=== PATIENT | female | born 1995 | race Caucasian/White ===

== ENCOUNTER 2017-07-08 22:38 | Inpatient (IN) | payer OTHER ==
[~2017-07-08] VITALS: Ht 154.9 cm; Wt 44.9 kg
[~2017-07-08 22:38] MED LIST: HUMALOG100 UNIT/1; LANTUS; LANTUS SOL100 UNIT/1 SQ; NOVOLIN N100 UNIT/3 SUBQ; VITAMIN D1000 UNI1
[2017-07-08 22:59] VITALS: BP 128/83
[2017-07-08 23:16] LABS: BE -30.2 mmol/L (-2 to +3)
[2017-07-08 23:18] LABS: PCO2 < 17.0 mmHg (35.0-45.0); PO2 152.6 mmHg (75.0-100.0); pH 6.876 (7.340-7.450)
[2017-07-08 23:19] LABS: HCO3 1.7 mmol/L (22.0-26.0)
[2017-07-08 23:27] LABS: POTASSIUM 5.6 mmol/L (3.5-5.1)
[2017-07-08 23:31] LABS: ALBUMIN 4.4 g/dL (3.4-5.0); MAGNESIUM 2.5 mg/dL (1.8-2.4); TOTAL BILIRUBIN 0.4 mg/dL (<0.1-1.0); TOTAL PROTEIN 9.5 g/dL (6.4-8.2)
[2017-07-09] VITALS (15 sets, daily range): BP systolic 85–121; BP diastolic 36–76
[2017-07-09 00:04] LABS: URINE BILIRUBIN NEGATIVE (Negative); URINE BLOOD TRACE (Negative); URINE CLARITY CLEAR; URINE COLOR STRAW; URINE GLUCOSE-RANDOM 3+ (Negative); URINE LEUKOCYTES-REFLEX NEGATIVE (Negative); URINE NITRITE-REFLEX NEGATIVE (Negative); URINE PROTEIN TRACE (Negative); URINE UROBILINOGEN 0.2 E.U./dl (0.2-1.0)
[2017-07-09 00:05] LABS: URINE KETONES 3+ (Negative)
[2017-07-09 00:06] LABS: HEMATOCRIT 46.8 % (37.0-47.0); HEMOGLOBIN 14.7 gm/dL (12.0-15.0); MCH 32.1 pg (26.0-34.0); MCHC 31.3 g/dL (28.0-37.0); MCV 102.4 fL (80.0-100.0); NUCLEATED RBCS 0 /100WBC; PLATELET COUNT* 580 thou/uL (150-400); RBC 4.57 mil/uL (4.20-5.00); RDW-CV 13.9 % (10.5-14.5); WBC 29.6 thou/uL (4.0-11.0)
[2017-07-09 01:34] LABS: ABSOLUTE BASOPHILS 0.6 thou/uL (0.0-0.2); ABSOLUTE MONOCYTES 4.1 thou/uL (0.0-1.2); ABSOLUTE NEUTROPHILS 19.8 thou/uL (1.6-8.1)
[2017-07-09 01:36] LABS: ANISOCYTOSIS 1+; PLATELET ESTIMATE INCREASED; POLYCHROMASIA 1+
[2017-07-09 01:38] LABS: MACROCYTES 1+
[2017-07-09 06:11] LABS: ALBUMIN 3.1 g/dL (3.4-5.0); CALCIUM 8.7 mg/dL (8.5-10.1); CREATININE 0.5 mg/dL (0.6-1.3); MAGNESIUM 1.7 mg/dL (1.8-2.4); PHOSPHORUS* 2.5 mg/dL (2.5-4.9)
[2017-07-09 06:12] LABS: POTASSIUM 4.1 mmol/L (3.5-5.1)
[2017-07-09 08:48] LABS: AMP/METHAMP Negative (Negative); BARBITURATES Negative (Negative); BENZODIAZEPINES Negative (Negative); COCAINE Negative (Negative); METHADONE Negative (Negative); OPIATES Negative (Negative); PCP Negative (Negative); THC Negative (Negative)
[2017-07-09 10:34] LABS: ALBUMIN 2.8 g/dL (3.4-5.0); CALCIUM 8.1 mg/dL (8.5-10.1); CREATININE 0.6 mg/dL (0.6-1.3); MAGNESIUM 1.5 mg/dL (1.8-2.4); PHOSPHORUS* 2.5 mg/dL (2.5-4.9); POTASSIUM 3.4 mmol/L (3.5-5.1)
[2017-07-09 13:50] LABS: HCO3 16.8 mmol/L (22.0-26.0); PCO2 32.1 mmHg (35.0-45.0); pH 7.336 (7.340-7.450)
[2017-07-09 14:08] LABS: HEMATOCRIT 37.3 % (37.0-47.0); MCHC 34.1 g/dL (28.0-37.0); MPV 7.2 fl. (7.2-11.1); RBC 3.98 mil/uL (4.20-5.00); RDW-CV 12.7 % (10.5-14.5); WBC 18.5 thou/uL (4.0-11.0)
[2017-07-09 14:19] LABS: ALBUMIN 2.9 g/dL (3.4-5.0); CALCIUM 8.5 mg/dL (8.5-10.1); CREATININE 0.6 mg/dL (0.6-1.3); TOTAL BILIRUBIN 0.2 mg/dL (<0.1-1.0); TOTAL PROTEIN 6.5 g/dL (6.4-8.2)
[2017-07-09 14:27] LABS: HEMOGLOBIN 12.7 gm/dL (12.0-15.0); MCV 93.8 fL (80.0-100.0)
--- NOTE | 2017-07-09 16:24 | EKG ---
[place] [address] ELECTROCARDIOGRAM REPORT Name: ROXI TRIPP Room: [address] ADM IN .R.#: [id number] Admission: 07/08/17 Attend Phys: Kelby Almazan MD Discharge: Date of : [birth year] Report #: [id number] THIS REPORT FOR: //name// [facility] ED Test Date: 2017-07-08 Test Time: 23:27:54 Pat Name: ROXI TRIPP Department: Room: [facility] Gender: F Tongue Trimmer: : 1995 Requested By: Josefina Bob Order Number: [id number] MD: Vikash Castillo Measurements Intervals [place] Rate: 106 P: 70 ID: 159 QRS: 97 QRSD: 109 T: 5 QT: 369 QTc: 490 Interpretive Statements Sinus tachycardia Borderline right axis deviation Borderline repolarization abnormality Borderline prolonged QT interval Compared to ECG 01/21/2017 04:57:41 T-wave abnormality no longer present Electronically Signed On 07-09-2017 16:24:29 PAINTER BARREL by Vikash Castillo [email or web address] <ELECTRONICALLY SIGNED> By: Vikash Castillo MD, FACC 07/09/17 1624 2327 2327 Vikash Castillo MD, [facility] /EPI
[2017-07-10] VITALS (14 sets, daily range): BP systolic 98–116; BP diastolic 60–79
[2017-07-10 04:41] LABS: BE -5.1 mmol/L (-2 to +3); HCO3 17.8 mmol/L (22.0-26.0); PCO2 26.9 mmHg (35.0-45.0); pH 7.438 (7.340-7.450)
[2017-07-10 04:44] LABS: PO2 126.8 mmHg (75.0-100.0)
[2017-07-10 05:31] LABS: HEMATOCRIT 33.8 % (37.0-47.0); MCHC 35.4 g/dL (28.0-37.0); MCV 93.1 fL (80.0-100.0); MPV 7.5 fl. (7.2-11.1); RBC 3.63 mil/uL (4.20-5.00); RDW-CV 12.8 % (10.5-14.5); WBC 9.2 thou/uL (4.0-11.0)
[2017-07-10 05:36] LABS: CALCIUM 7.7 mg/dL (8.5-10.1); CREATININE 0.4 mg/dL (0.6-1.3); MAGNESIUM 2.1 mg/dL (1.8-2.4)
[2017-07-10 05:54] LABS: POTASSIUM 2.8 mmol/L (3.5-5.1)
[2017-07-10 07:37] LABS: HEPATITIS B SURFACE AG Negative (Negative)
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
== END 2017-07-10 20:38 | disposition left against medical advice (07) | DRG 637 ==
LOC: M.ERS 22:38 → M.ICU 23:34 → M.TBA-ER 23:34 → M.ICU 23:34 → M.ERS 23:34 → M.ICU 07-09 00:13
PROVIDERS: Internal Medicine; Personal Emergency Response Attendant; ADMIT Internal Medicine
DX: E13.10 Other specified diabetes mellitus with ketoacidosis without coma (principal); G93.41 Metabolic encephalopathy; N17.9 Acute kidney failure, unspecified; R65.10 Systemic inflammatory response syndrome (SIRS) of non-infectious origin without acute organ dysfunction; T74.21XA Adult sexual abuse, confirmed, initial encounter; F17.210 Nicotine dependence, cigarettes, uncomplicated; D72.829 Elevated white blood cell count, unspecified; E86.9 Volume depletion, unspecified; E87.6 Hypokalemia; F41.9 Anxiety disorder, unspecified; F43.10 Post-traumatic stress disorder, unspecified; F39 Unspecified mood [affective] disorder; Z53.21 Procedure and treatment not carried out due to patient leaving prior to being seen by health care provider; Z91.041 Radiographic dye allergy status; Z91.040 Latex allergy status; Z79.899 Other long term (current) drug therapy; Z23 Encounter for immunization

== ENCOUNTER 2017-10-27 19:05 | Inpatient (IN) | payer OTHER ==
[~2017-10-27] VITALS: Ht 157.5 cm; Wt 39.5 kg
[2017-10-27 19:07] VITALS: BP 123/87
[2017-10-27 19:27] LABS: HEMATOCRIT 47.7 % (37.0-47.0); HEMOGLOBIN 15.7 gm/dL (12.0-15.0); MPV 6.6 fl. (7.2-11.1); NUCLEATED RBCS 0 /100WBC; PLATELET COUNT* 574 thou/uL (150-400); RBC 4.92 mil/uL (4.20-5.00); RDW-CV 14.6 % (10.5-14.5); WBC 15.2 thou/uL (4.0-11.0)
[2017-10-27 19:36] LABS: ANION GAP 25 mmol/L (7-16); BUN 11 mg/dL (7-18); CALCIUM 9.6 mg/dL (8.5-10.1); CHLORIDE 99 mmol/L (98-107); CREATININE 0.8 mg/dL (0.6-1.3); GLUCOSE 371 mg/dL (70-99); SODIUM 129 mmol/L (136-145)
[2017-10-27 19:40] LABS: POTASSIUM 2.3 mmol/L (3.5-5.1)
[2017-10-27 19:41] LABS: CO2 < 5 mmol/L (21-32)
[2017-10-27 19:42] LABS: ALBUMIN 3.2 g/dL (3.4-5.0); ALKALINE PHOSPHATASE 175 U/L (46-116); SGOT 9 U/L (15-37); SGPT 13 U/L (30-65); TOTAL BILIRUBIN 0.3 mg/dL (<0.1-1.0); TOTAL PROTEIN 8.8 g/dL (6.4-8.2)
[2017-10-27 19:50] LABS: ABSOLUTE BASOPHILS 0.3 thou/uL (0.0-0.2); ABSOLUTE MONOCYTES 1.1 thou/uL (0.0-1.2); ABSOLUTE NEUTROPHILS 9.9 thou/uL (1.6-8.1)
[2017-10-27 19:51] LABS: PLATELET ESTIMATE INCREASED
[2017-10-27 20:01] LABS: BE -25.4 mmol/L (-2 to +3)
[2017-10-27 20:03] LABS: pH 7.035 (7.340-7.450)
[2017-10-27 20:04] LABS: HCO3 3.3 mmol/L (22.0-26.0); PCO2 < 17.0 mmHg (35.0-45.0); PO2 139.3 mmHg (75.0-100.0)
[2017-10-27 20:22] LABS: MAGNESIUM 2.2 mg/dL (1.8-2.4); PHOSPHORUS* 2.3 mg/dL (2.5-4.9)
[2017-10-27 20:46] LABS: URINE BILIRUBIN NEGATIVE (Negative); URINE BLOOD TRACE (Negative); URINE CLARITY CLEAR; URINE COLOR STRAW; URINE GLUCOSE-RANDOM 2+ (Negative); URINE LEUKOCYTES-REFLEX NEGATIVE (Negative); URINE NITRITE-REFLEX NEGATIVE (Negative); URINE PROTEIN 1+ (Negative); URINE SPECIFIC GRAVITY >= 1.030 (1.005-1.030); URINE UROBILINOGEN 0.2 E.U./dl (0.2-1.0)
[2017-10-27 20:47] LABS: URINE KETONES 3+ (Negative)
[2017-10-27 21:30] VITALS: BP 114/82
[2017-10-27 21:35] VITALS: BP 117/84
[2017-10-27 22:30] VITALS: BP 109/78
[2017-10-27 23:00] VITALS: BP 110/80
[2017-10-27 23:06] LABS: CALCIUM 7.7 mg/dL (8.5-10.1); CREATININE 0.5 mg/dL (0.6-1.3)
[2017-10-27 23:09] LABS: ALBUMIN 2.6 g/dL (3.4-5.0); PHOSPHORUS* 1.3 mg/dL (2.5-4.9)
[2017-10-27 23:10] LABS: POTASSIUM 2.3 mmol/L (3.5-5.1)
[2017-10-28] VITALS (16 sets, daily range): BP systolic 94–109; BP diastolic 61–82
[2017-10-28 03:38] LABS: CALCIUM 7.6 mg/dL (8.5-10.1); CREATININE 0.6 mg/dL (0.6-1.3)
[2017-10-28 03:41] LABS: ALBUMIN 2.4 g/dL (3.4-5.0); MAGNESIUM 1.5 mg/dL (1.8-2.4); PHOSPHORUS* 1.1 mg/dL (2.5-4.9)
[2017-10-28 04:07] LABS: POTASSIUM 2.4 mmol/L (3.5-5.1)
[2017-10-28 07:13] LABS: CREATININE 0.5 mg/dL (0.6-1.3)
[2017-10-28 07:16] LABS: ALBUMIN 2.4 g/dL (3.4-5.0); MAGNESIUM 1.6 mg/dL (1.8-2.4); PHOSPHORUS* 1.2 mg/dL (2.5-4.9)
[2017-10-28 07:19] LABS: POTASSIUM 2.6 mmol/L (3.5-5.1)
[2017-10-28 08:11] LABS: HEMATOCRIT 36.1 % (37.0-47.0); MCH 31.8 pg (26.0-34.0); MCHC 34.8 g/dL (28.0-37.0); NUCLEATED RBCS 0 /100WBC; RBC 3.94 mil/uL (4.20-5.00); RDW-CV 14.4 % (10.5-14.5)
[2017-10-28 08:33] LABS: HEMOGLOBIN 12.5 gm/dL (12.0-15.0); MCV 91.5 fL (80.0-100.0); PLATELET COUNT* 474 thou/uL (150-400)
[2017-10-28 09:46] LABS: ABSOLUTE NEUTROPHILS 7.9 thou/uL (1.6-8.1)
[2017-10-28 09:47] LABS: PLATELET ESTIMATE INCREASED
[2017-10-28 10:20] LABS: AMP/METHAMP Negative (Negative); BARBITURATES Negative (Negative); BENZODIAZEPINES Negative (Negative); COCAINE Negative (Negative); METHADONE Negative (Negative); OPIATES Negative (Negative); PCP Negative (Negative); THC Negative (Negative)
[2017-10-28 12:28] LABS: ALBUMIN 2.2 g/dL (3.4-5.0); CALCIUM 7.4 mg/dL (8.5-10.1); CREATININE 0.4 mg/dL (0.6-1.3); PHOSPHORUS* 2.9 mg/dL (2.5-4.9)
[2017-10-28 12:29] LABS: POTASSIUM 3.6 mmol/L (3.5-5.1)
[2017-10-28 13:10] LABS: GLYCOHEMOGLOBIN (HGB A1C) 12.2 % (4.8-5.6)
[2017-10-28 15:27] LABS: ALBUMIN 2.1 g/dL (3.4-5.0); CREATININE 0.5 mg/dL (0.6-1.3); MAGNESIUM 1.7 mg/dL (1.8-2.4); PHOSPHORUS* 2.1 mg/dL (2.5-4.9); POTASSIUM 3.2 mmol/L (3.5-5.1)
[2017-10-28 21:11] LABS: MAGNESIUM 2.2 mg/dL (1.8-2.4); POTASSIUM 3.8 mmol/L (3.5-5.1)
[2017-10-29 00:21] VITALS: BP 102/67
[2017-10-29 03:54] LABS: ABSOLUTE EOSINOPHILS 0.1 thou/uL (0.0-0.7); ABSOLUTE MONOCYTES 0.9 thou/uL (0.0-1.2); ABSOLUTE NEUTROPHILS 3.1 thou/uL (1.6-8.1); BASOPHILS 0.6 %; EOSINOPHILS 2.1 %; HEMATOCRIT 34.5 % (37.0-47.0); HEMOGLOBIN 12.2 gm/dL (12.0-15.0); LYMPHOCYTES 41.6 %; MCH 32.1 pg (26.0-34.0); MCHC 35.2 g/dL (28.0-37.0); MCV 91.3 fL (80.0-100.0); MONOCYTES 12.5 %; MPV 6.5 fl. (7.2-11.1); NUCLEATED RBCS 0 /100WBC; POLYS 43.2 %; RBC 3.78 mil/uL (4.20-5.00); RDW-CV 14.5 % (10.5-14.5); WBC 7.1 thou/uL (4.0-11.0)
[2017-10-29 03:59] LABS: CALCIUM 7.4 mg/dL (8.5-10.1); CREATININE 0.5 mg/dL (0.6-1.3)
[2017-10-29 04:00] VITALS: BP 101/67
[2017-10-29 04:02] LABS: PLATELET COUNT* 358 thou/uL (150-400)
[2017-10-29 08:00] VITALS: BP 108/74
[2017-10-29 12:00] VITALS: BP 103/70
[2017-10-29 14:56] LABS: MAGNESIUM 2.1 mg/dL (1.8-2.4); POTASSIUM 3.8 mmol/L (3.5-5.1)
[2017-10-29 16:00] VITALS: BP 99/64
[2017-10-29 18:56] LABS: URINE BILIRUBIN NEGATIVE (Negative); URINE BLOOD TRACE (Negative); URINE CLARITY CLEAR; URINE COLOR YELLOW; URINE GLUCOSE-RANDOM 1+ (Negative); URINE KETONES 1+ (Negative); URINE LEUKOCYTES NEGATIVE (Negative); URINE NITRITE NEGATIVE (Negative); URINE PROTEIN NEGATIVE (Negative); URINE UROBILINOGEN 0.2 E.U./dl (0.2-1.0)
[2017-10-29 20:05] VITALS: BP 110/75
[2017-10-29 23:44] LABS: ABSOLUTE EOSINOPHILS 0.2 thou/uL (0.0-0.7); ABSOLUTE LYMPHOCYTES 3.1 thou/uL (0.8-5.3); ABSOLUTE MONOCYTES 0.8 thou/uL (0.0-1.2); ABSOLUTE NEUTROPHILS 2.9 thou/uL (1.6-8.1); BASOPHILS 0.5 %; EOSINOPHILS 2.5 %; HEMATOCRIT 32.3 % (37.0-47.0); HEMOGLOBIN 11.3 gm/dL (12.0-15.0); LYMPHOCYTES 44.5 %; MCH 32.6 pg (26.0-34.0); MCV 92.9 fL (80.0-100.0); MONOCYTES 10.9 %; MPV 6.6 fl. (7.2-11.1); NUCLEATED RBCS 0 /100WBC; PLATELET COUNT* 300 thou/uL (150-400); POLYS 41.6 %; RBC 3.48 mil/uL (4.20-5.00); RDW-CV 14.6 % (10.5-14.5); WBC 6.9 thou/uL (4.0-11.0)
[2017-10-29 23:51] LABS: ALBUMIN 2.1 g/dL (3.4-5.0); ALKALINE PHOSPHATASE 121 U/L (46-116); ANION GAP 4 mmol/L (7-16); BUN 19 mg/dL (7-18); CALCIUM 8.2 mg/dL (8.5-10.1); CHLORIDE 100 mmol/L (98-107); CO2 30 mmol/L (21-32); CREATININE 0.4 mg/dL (0.6-1.3); GLUCOSE 241 mg/dL (70-99); PHOSPHORUS* 2.3 mg/dL (2.5-4.9); POTASSIUM 4.1 mmol/L (3.5-5.1); SGOT 19 U/L (15-37); SGPT 11 U/L (30-65); SODIUM 134 mmol/L (136-145); TOTAL BILIRUBIN 0.1 mg/dL (<0.1-1.0); TOTAL PROTEIN 5.9 g/dL (6.4-8.2)
[2017-10-30 00:18] VITALS: BP 95/69
[2017-10-30 04:07] LABS: ALBUMIN 2.1 g/dL (3.4-5.0); CREATININE 0.3 mg/dL (0.6-1.3); TOTAL BILIRUBIN 0.1 mg/dL (<0.1-1.0)
[2017-10-30 04:09] LABS: ABSOLUTE EOSINOPHILS 0.1 thou/uL (0.0-0.7); ABSOLUTE LYMPHOCYTES 3.2 thou/uL (0.8-5.3); ABSOLUTE MONOCYTES 0.8 thou/uL (0.0-1.2); ABSOLUTE NEUTROPHILS 3.1 thou/uL (1.6-8.1); BASOPHILS 0.6 %; EOSINOPHILS 1.4 %; HEMATOCRIT 33.1 % (37.0-47.0); HEMOGLOBIN 11.6 gm/dL (12.0-15.0); LYMPHOCYTES 44.1 %; MCH 32.7 pg (26.0-34.0); MCHC 35.1 g/dL (28.0-37.0); MCV 93.3 fL (80.0-100.0); MPV 6.8 fl. (7.2-11.1); NUCLEATED RBCS 0 /100WBC; PLATELET COUNT* 314 thou/uL (150-400); POLYS 42.9 %; RBC 3.55 mil/uL (4.20-5.00); RDW-CV 14.5 % (10.5-14.5); WBC 7.3 thou/uL (4.0-11.0)
[2017-10-30 05:00] VITALS: BP 97/63
[2017-10-30 07:41] VITALS: BP 101/68
[2017-10-30] MEDS ORDERED: NOVOLIN N100 UNIT/1 SUBQ (16:22)
[2017-10-30] MEDS ORDERED: HUMULIN R100 UNIT/M SUBQ ×2 (16:24→16:25)
[2017-10-30 16:59] VITALS: BP 107/79
[2017-10-30 23:42] VITALS: BP 107/68
[2017-10-31 08:25] VITALS: BP 106/70
[2017-10-31 11:26] LABS: CALCIUM 8.9 mg/dL (8.5-10.1); CREATININE 0.6 mg/dL (0.6-1.3); POTASSIUM 3.8 mmol/L (3.5-5.1)
[2017-10-31 13:54] VITALS: BP 107/68
[2017-10-31 14:08] VITALS: BP 107/68
[2017-10-31] MEDS ORDERED: LEXAPRO5 MG PO (14:12)
[2017-10-31 16:02] VITALS: BP 101/59
[2017-10-31 17:23] VITALS: BP 107/68
== END 2017-10-31 17:05 | disposition home or self-care (01) | DRG 637 ==
LOC: M.ERS 19:05 → M.ICU 19:56 → M.TBA-ER 19:56 → M.ICU 21:43 → M.3W 10-30 10:11
PROVIDERS: Family Medicine; Internal Medicine; Nurse Practitioner Family; ADMIT Internal Medicine
DX: E10.10 Type 1 diabetes mellitus with ketoacidosis without coma (principal); G93.40 Encephalopathy, unspecified; E43 Unspecified severe protein-calorie malnutrition; Z68.1 Body mass index [BMI] 19.9 or less, adult; F17.210 Nicotine dependence, cigarettes, uncomplicated; E87.6 Hypokalemia; E86.0 Dehydration; Z91.041 Radiographic dye allergy status; Z91.040 Latex allergy status

== ENCOUNTER 2019-01-09 09:48 | Inpatient (IN) | payer OTHER ==
[~2019-01-09] VITALS: Ht 157.5 cm; Wt 52.6 kg
[2019-01-09] VITALS (13 sets, daily range): BP systolic 87–128; BP diastolic 47–85
--- NOTE | ~2019-01-09 | CON ---
[facility] [address] [place] [address] CONSULTATION Name: ROXI TRIPP Room: [address] IN .R.#: [id number] Admission: 01/09/19 Attend Phys: Joaquín Pizarro MD Discharge: Date of : 97 Report #: [id number] THIS REPORT FOR: //name// CC: [facility] physician/PCP Joaquín Pizarro DATE OF SERVICE: 01/10/2019 NEPHROLOGY CONSULTATION REQUESTING PHYSICIAN: Joaquín Pizarro MD REASON FOR NEPHROLOGY CONSULTATION: Diabetic ketoacidosis. REASON FOR ADMISSION: Nausea, lethargy, and diabetic ketoacidosis. HISTORY OF PRESENT ILLNESS: This is a 23-year-old female who has diabetes type 1, on insulin, missed a few doses of insulin because of falling asleep, came in with diabetic ketoacidosis and hence, Nephrology was consulted. This morning, she is more awake. Her blood pressures have been slightly low. She has been getting IV fluids according to diabetic ketoacidosis protocol overnight and she looks like she is getting out of diabetic ketoacidosis now. ALLERGIES: TO LATEX AND RED DYE. REVIEW OF SYSTEMS: As mentioned in history of present illness. The patient is currently slightly awake and she does not have any acute complaints. A 10-point review of systems is kind of limited because she is still a little lethargic. HOME MEDICATIONS: Include NPH insulin and escitalopram. PAST MEDICAL AND SURGICAL HISTORY: Includes tonsillectomy, history of seizures, type 1 diabetes, and vitamin D deficiency. FAMILY HISTORY: Reviewed and noncontributory. SOCIAL HISTORY: Current every day smoker and no history of alcohol use or recreational drug use that we know of. PHYSICAL EXAMINATION: VITAL SIGNS: Blood pressure is 91/54, pulse rate is 101, temperature is 36.9, respiratory rate is 18, pulse ox is 99% and on no oxygen. GENERAL: She is currently quite drowsy, although she follows some commands. HEAD AND EYES: Atraumatic and normocephalic. Normal conjunctivae. EARS, NOSE, AND THROAT: Mucous membranes are moist. NECK: There is no [place] [address] CONSULTATION Name: ROXI TRIPP Room: [address]#: [id number] Admission: 01/09/19 Attend Phys: Joaquín Pizarro MD Discharge: Date of : 97 Report #: [id number] CHEST: Bilaterally clear to auscultation anteriorly. No crackles or wheezing. CARDIOVASCULAR: S1, S2 normal. No murmurs heard. ABDOMEN: Soft, nondistended, nontender, and bowel sounds are present. EXTREMITIES: There is no lower extremity edema, symmetrical lower extremities. NEUROLOGICAL FUNCTION: Gross neurological function seems to be intact, although she is kind of drowsy right now. PSYCHIATRIC: Unable to assess right now because she is drowsy. LABORATORY DATA: WBC 11.6 and hemoglobin is 12.6. Sodium is 136, potassium is 4.1, and her CO2 was 7 when she came in but now 24. Her creatinine was 1.1 when she came in and now is 0.5 and other labs were reviewed. Her anion gap is 8 now. IMAGING: Chest x-ray was reviewed. ASSESSMENT: 1. Diabetic ketoacidosis. 2. History of diabetes type 1. 3. Toxic encephalopathy. 4. Volume depletion. PLAN: The patient was given fluids as per diabetic ketoacidosis protocol and initially, she was given fluids with half normal saline with 50 mg of sodium bicarbonate, but currently she is out of diabetic ketoacidosis. Her gap is closed. There is no need for any bicarbonate right now. Her creatinine is normal. We do not have anything else to offer. We will sign off for now. Please call with any questions. By: 0740 0800Holly Do MD /nt
[~2019-01-09 09:48] MED LIST changes: +HUMULIN R100 UNIT/M SUBQ; +LEXAPRO5 MG PO; +NOVOLIN N100 UNIT/1 SUBQ
[2019-01-09 10:08] LABS: ABSOLUTE BASOPHILS 0.2 thou/uL (0.0-0.2); ABSOLUTE LYMPHOCYTES 3.4 thou/uL (0.8-5.3); ABSOLUTE MONOCYTES 0.9 thou/uL (0.0-1.2); ABSOLUTE NEUTROPHILS 14.7 thou/uL (1.6-8.1); BASOPHILS 1.3 %; EOSINOPHILS 0.1 %; HEMATOCRIT 53.1 % (37.0-47.0); HEMOGLOBIN 16.8 gm/dL (12.0-15.0); LYMPHOCYTES 17.8 %; MCH 31.6 pg (26.0-34.0); MCHC 31.6 g/dL (28.0-37.0); MONOCYTES 4.8 %; NUCLEATED RBCS 0 /100WBC; PLATELET COUNT* 514 thou/uL (150-400); RBC 5.31 mil/uL (4.20-5.00); RDW-CV 14.2 % (10.5-14.5); WBC 19.3 thou/uL (4.0-11.0)
[2019-01-09 10:13] LABS: BE -27.9 mmol/L (-2 to +3)
[2019-01-09 10:16] LABS: PCO2 < 17.0 mmHg (35.0-45.0)
[2019-01-09 10:17] LABS: PO2 178.8 mmHg (75.0-100.0); pH 6.957 (7.340-7.450)
[2019-01-09 10:26] LABS: CALCIUM 9.4 mg/dL (8.5-10.1); CREATININE 1.1 mg/dL (0.6-1.3); POTASSIUM 4.7 mmol/L (3.5-5.1)
[2019-01-09 10:28] LABS: ALBUMIN 4.2 g/dL (3.4-5.0); MAGNESIUM 2.1 mg/dL (1.8-2.4); TOTAL BILIRUBIN 0.3 mg/dL (<0.1-1.0); TOTAL PROTEIN 8.9 g/dL (6.4-8.2)
--- NOTE | 2019-01-09 10:38 | NUR ---
CENTRAL LINE PLACED BY DR. PAZ.
[2019-01-09 11:27] LABS: PHOSPHORUS* 5.9 mg/dL (2.5-4.9); TROPONIN-I LEVEL <0.06 ng/mL (<0.06)
[2019-01-09 13:15] LABS: BE -14.9 mmol/L (-2 to +3); PCO2 22.2 mmHg (35.0-45.0)
[2019-01-09 13:17] LABS: PO2 148.6 mmHg (75.0-100.0); pH 7.269 (7.340-7.450)
[2019-01-09 13:36] LABS: CALCIUM 7.5 mg/dL (8.5-10.1); CREATININE 0.6 mg/dL (0.6-1.3)
[2019-01-09 13:38] LABS: ALBUMIN 2.9 g/dL (3.4-5.0); MAGNESIUM 1.4 mg/dL (1.8-2.4); PHOSPHORUS* 2.2 mg/dL (2.5-4.9); POTASSIUM 3.2 mmol/L (3.5-5.1)
[2019-01-09 13:57] LABS: URINE BILIRUBIN NEGATIVE (Negative); URINE BLOOD TRACE (Negative); URINE CLARITY CLEAR; URINE COLOR YELLOW; URINE GLUCOSE-RANDOM 2+ (Negative); URINE KETONES 3+ (Negative); URINE LEUKOCYTES-REFLEX NEGATIVE (Negative); URINE NITRITE-REFLEX NEGATIVE (Negative); URINE PROTEIN 1+ (Negative); URINE SPECIFIC GRAVITY >= 1.030 (1.005-1.030); URINE UROBILINOGEN 0.2 E.U./dl (0.2-1.0)
[2019-01-09 14:04] LABS: AMP/METHAMP Negative (Negative); BARBITURATES Negative (Negative); BENZODIAZEPINES Negative (Negative); COCAINE Negative (Negative); METHADONE Negative (Negative); OPIATES Negative (Negative); PCP Negative (Negative); THC Negative (Negative)
--- NOTE | 2019-01-09 17:06 | NUR ---
CLINIC OFFICE COORDINATOR SHOWING PT HAD 5-6 SECOND PAUSE CONTAINING 7 REGULAR NONCONDUCTED P WAVES, FOLLOWED BY RETURN TO SINUS TACH RATE 104. PT SLEEPING, ASYMPTOMATIC ALL OTHER VITALS WNL. DR AMAYA NOTIFIED, ORDER RECEIVED FOR CALCIUM IVPB. DR AMAYA STATED THAT IF PT HAS ANOTHER SIMILAR EPISODE ONCE ELYTES ARE WNL, CARDIOLOGY WILL BE CONSULTED.
[2019-01-09 17:18] LABS: CALCIUM 7.1 mg/dL (8.5-10.1); CREATININE 0.6 mg/dL (0.6-1.3); POTASSIUM 3.9 mmol/L (3.5-5.1)
[2019-01-09 17:21] LABS: ALBUMIN 2.6 g/dL (3.4-5.0); MAGNESIUM 1.5 mg/dL (1.8-2.4); PHOSPHORUS* 2.2 mg/dL (2.5-4.9)
--- NOTE | 2019-01-09 21:07 | NUR ---
ADMITTED TO ICU BED 3 AT 1410. PT LETHARGIC, AROUSES TO NOXIOUS STIMULI BUT DOES NOT VERBALIZE EXCEPT TO OBJECT TO NOXIOUS STIMULI. UNABLE TO OBTAIN MUCH OF ADMISSION HISTORY DUE TO CONDITION. INSULIN GTT. ELECTROLYTE REPLACEMENT AND IVF PER DKA PROTOCOL. NUMEROUS SMALL CIRCULAR SCAB OVER FACE AND EXTREMITIES. ONE EPISODE OF EMESIS AT 1745, LARGE AMOUNT OF PARTIALLY DIGESTED FOOD. COMPLETE BED BATH GIVEN AT THAT TIME, HAIR SHAMPOOED. PT TURNED Q2HR. CALL LIGHT WITHIN REACH.
[2019-01-09 21:13] LABS: CALCIUM 7.1 mg/dL (8.5-10.1); CREATININE 0.6 mg/dL (0.6-1.3); POTASSIUM 3.8 mmol/L (3.5-5.1)
[2019-01-09 21:16] LABS: ALBUMIN 2.6 g/dL (3.4-5.0); MAGNESIUM 4.2 mg/dL (1.8-2.4)
[2019-01-10] VITALS (13 sets, daily range): BP systolic 88–100; BP diastolic 47–63
[2019-01-10 01:42] LABS: ALBUMIN 2.5 g/dL (3.4-5.0); CALCIUM 7.1 mg/dL (8.5-10.1); CREATININE 0.5 mg/dL (0.6-1.3); MAGNESIUM 2.8 mg/dL (1.8-2.4); PHOSPHORUS* 1.9 mg/dL (2.5-4.9)
--- NOTE | 2019-01-10 04:44 | NUR ---
ASSUMED CARE AT 1900H, ON ROOM AIR AND DKA PROTOCOL.PT WAS BOARDERLINE TACHYCARDIC.PT WAS ASLEEP THE WHOLE NIGHT AND ASKED FOOD EARLY THIS MORNING AND TOLD HER SHE CAN ONLY HAVE ICE CHIPS AND GOT GRUMPY.NO DISTRESS NOTED.CONTINUE MONITORING AND TOWARDS GOAL.INSULIN DRIP AT 0.5IU/HR.
[2019-01-10 05:29] LABS: ABSOLUTE BASOPHILS 0.1 thou/uL (0.0-0.2); ABSOLUTE EOSINOPHILS 0.2 thou/uL (0.0-0.7); ABSOLUTE LYMPHOCYTES 3.6 thou/uL (0.8-5.3); ABSOLUTE MONOCYTES 0.5 thou/uL (0.0-1.2); ABSOLUTE NEUTROPHILS 7.1 thou/uL (1.6-8.1); EOSINOPHILS 1.5 %; HEMATOCRIT 36.4 % (37.0-47.0); LYMPHOCYTES 31.1 %; MCH 31.6 pg (26.0-34.0); MCHC 34.7 g/dL (28.0-37.0); MONOCYTES 4.7 %; MPV 8.5 fl. (7.2-11.1); NUCLEATED RBCS 0 /100WBC; POLYS 61.7 %; RDW-CV 13.4 % (10.5-14.5); WBC 11.6 thou/uL (4.0-11.0)
[2019-01-10 05:33] LABS: HEMOGLOBIN 12.6 gm/dL (12.0-15.0)
[2019-01-10 05:37] LABS: ALBUMIN 2.4 g/dL (3.4-5.0); ALKALINE PHOSPHATASE 96 U/L (46-116); ANION GAP 8 mmol/L (7-16); BUN 9 mg/dL (7-18); CALCIUM 6.8 mg/dL (8.5-10.1); CHLORIDE 104 mmol/L (98-107); CO2 24 mmol/L (21-32); CREATININE 0.5 mg/dL (0.6-1.3); GLUCOSE 144 mg/dL (70-99); MAGNESIUM 2.5 mg/dL (1.8-2.4); PHOSPHORUS* 1.9 mg/dL (2.5-4.9); POTASSIUM 4.1 mmol/L (3.5-5.1); SGOT 12 U/L (15-37); SGPT 16 U/L (30-65); SODIUM 136 mmol/L (136-145); TOTAL BILIRUBIN 0.2 mg/dL (<0.1-1.0); TOTAL PROTEIN 5.4 g/dL (6.4-8.2)
[2019-01-10 06:31] LABS: PLATELET COUNT* 230 thou/uL (150-400)
--- NOTE | 2019-01-10 08:42 | NUR ---
AFTER PT EATS BREAKFAST WILL DC INSULIN GTT PER DOCTOR MONIQUE INSTRUCTION AND CHANGE IVF. WILL CONTINUE TO ASSESS.
--- NOTE | 2019-01-10 09:43 | NUR ---
INSULIN GTT DISOCNTINUED AND IVF CHANGHED.
[2019-01-10 12:20] LABS: URINE BILIRUBIN NEGATIVE (Negative); URINE BLOOD NEGATIVE (Negative); URINE CLARITY CLEAR; URINE COLOR YELLOW; URINE GLUCOSE-RANDOM 3+ (Negative); URINE KETONES 2+ (Negative); URINE LEUKOCYTES NEGATIVE (Negative); URINE NITRITE NEGATIVE (Negative); URINE PROTEIN NEGATIVE (Negative); URINE UROBILINOGEN 0.2 E.U./dl (0.2-1.0)
--- NOTE | 2019-01-10 17:37 | NUR ---
REPORT CALLED TO JOINT AND SPINE RN. PT TRANSFERRED TO ROOM 107.
--- NOTE | 2019-01-10 18:10 | NUR ---
PATIENT TRANSFERRED TO ROOM 107 AT APPROX 1730. ALERT AND ORIENTED X4. VSS ON ROOM AIR. NO COMPLAINTS UPON ARRIVAL. PATIENT UP AD MELINA ACCORDING TO REPORT FROM ICU NURSE, AMBULATES STEADILY. CALL LIGHT PLACED IN REACH. WILL CONTINUE TO MONITOR.
[2019-01-11] VITALS: BP 102/68
--- NOTE | 2019-01-11 04:54 | NUR ---
PATIENT HAS REMAINED ALERT AND ORIENTED THIS SHIFT AND RESTING QUIETLY AT HOURLY ROUNDS. HS BLOOD SUGAR 212. 3 UNITS HUMALOG PER SLIDING SCALE AND SNACK PROVIDED. STABLE OVERNIGHT WITH AM LAB PENDING. SOME DISCUSSION REGARDING CARE OF DIABETES AT DISCHARGE. PATIENT HAS NOT MADE ANY PLANS OF WHAT CHANGES MIGHT NEED TO BE MADE FOR BETTER CONTROL. HAVE BEEN NOTIFIED BY LAB THAT LINE DRAW HEMOLIZED. WILL HAVE LAB COMPLETE PERIPHERAL STICK. PATIENT NOTIFIED AND IN AGREEMENT. VITAL SIGNS STABLE. CONTINUE TO MONITOR.
[2019-01-11 07:56] LABS: CALCIUM 8.4 mg/dL (8.5-10.1); CREATININE 0.4 mg/dL (0.6-1.3); MAGNESIUM 1.9 mg/dL (1.8-2.4); PHOSPHORUS* 2.7 mg/dL (2.5-4.9); POTASSIUM 3.8 mmol/L (3.5-5.1)
[2019-01-11 08:20] VITALS: BP 104/68
[2019-01-11 11:05] VITALS: BP 104/68
--- NOTE | 2019-01-11 12:26 | NUR ---
ASSUMED CARE OF PATIENT AT APPROX 0730. ALERT AND ORIENTED X4. ASSESSMENT COMPLETED AND CHARTED. VSS ON ROOM AIR. NO COMPLAINTS OF PAIN, NAUSEA, OR SOA. PATIENT CLEARED FOR DISCHARGE AND STATED THAT SHE DID NOT NEED ANY PRESCRIPTIONS. LEFT SUBCLAVIAN CENTRAL LINE REMOVED, PRESSURE DRESSING APPLIED. PATIENT REFUSED LUNCH TIME INSULIN. PATIENT DISCHARGED AT 1200 WITH ALL PERSONAL BELONGINGS AND DISCHARGE INSTRUCTIONS.
== END 2019-01-11 12:00 | disposition home or self-care (01) | DRG 637 ==
LOC: M.ERS 09:48 → M.TBA-ER 10:59 → M.ICU 14:04 → M.ORTHSURG 01-10 17:30
PROVIDERS: Personal Emergency Response Attendant; ADMIT Internal Medicine
DX: E10.10 Type 1 diabetes mellitus with ketoacidosis without coma (principal); G92 Toxic encephalopathy; R65.10 Systemic inflammatory response syndrome (SIRS) of non-infectious origin without acute organ dysfunction; E86.9 Volume depletion, unspecified; F32.9 Major depressive disorder, single episode, unspecified; Z91.041 Radiographic dye allergy status; Z91.040 Latex allergy status; Z79.4 Long term (current) use of insulin

== ENCOUNTER 2019-02-05 13:22 | Inpatient (IN) | payer OTHER ==
[2019-02-05] VITALS (12 sets, daily range): BP systolic 89–122; BP diastolic 48–87
[~2019-02-05] VITALS: Ht 152.4 cm; Wt 52.6 kg
[2019-02-05 13:54] LABS: HEMATOCRIT 52.1 % (37.0-47.0); HEMOGLOBIN 17.1 gm/dL (12.0-15.0); MCH 32.4 pg (26.0-34.0); MCHC 32.8 g/dL (28.0-37.0); MCV 98.7 fL (80.0-100.0); NUCLEATED RBCS 0 /100WBC; PLATELET COUNT* 563 thou/uL (150-400); RBC 5.28 mil/uL (4.20-5.00); RDW-CV 14.2 % (10.5-14.5); WBC 18.1 thou/uL (4.0-11.0)
[2019-02-05 13:56] LABS: PCO2 VENOUS 26.9 mmHg (41.0-51.0); PO2 VENOUS 48.7 mmHg (35.0-45.0)
[2019-02-05 13:57] LABS: BE -24.6 mmol/L (-2 to +3)
[2019-02-05 14:09] LABS: BUN 32 mg/dL (7-18); CALCIUM 10.3 mg/dL (8.5-10.1); CHLORIDE 87 mmol/L (98-107); CREATININE 1.2 mg/dL (0.6-1.3); POTASSIUM 5.1 mmol/L (3.5-5.1); SODIUM 125 mmol/L (136-145)
[2019-02-05 14:13] LABS: ANION GAP 30 mmol/L (7-16)
[2019-02-05 14:14] LABS: CO2 8 mmol/L (21-32); GLUCOSE 541 mg/dL (70-99)
[2019-02-05 14:16] LABS: ALBUMIN 4.5 g/dL (3.4-5.0); ALKALINE PHOSPHATASE 189 U/L (46-116); LIPASE 188 U/L (73-393); SGOT 11 U/L (15-37); SGPT 26 U/L (30-65); TOTAL BILIRUBIN 0.5 mg/dL (<0.1-1.0); TOTAL PROTEIN 9.9 g/dL (6.4-8.2); TROPONIN-I LEVEL <0.06 ng/mL (<0.06)
[2019-02-05 14:20] LABS: ABSOLUTE LYMPHOCYTES 3.1 thou/uL (0.8-5.3); ABSOLUTE MONOCYTES 0.9 thou/uL (0.0-1.2); ABSOLUTE NEUTROPHILS 14.1 thou/uL (1.6-8.1); PLATELET ESTIMATE ADEQUATE
[2019-02-05 17:54] LABS: ALBUMIN 3.2 g/dL (3.4-5.0); CALCIUM 8.8 mg/dL (8.5-10.1); CREATININE 0.7 mg/dL (0.6-1.3); MAGNESIUM 1.7 mg/dL (1.8-2.4); PHOSPHORUS* 3.5 mg/dL (2.5-4.9); POTASSIUM 4.9 mmol/L (3.5-5.1)
--- NOTE | 2019-02-05 18:44 | NUR ---
RECEIVED REPORT AND ASSUMED CARE OF PT @ 9026.PT IS A/OX4 BUT DROWSY.PT REMAINS ON ROOM AIR.IV RIGHT WRIST AND LEFT AC PATENT WITH IVF AND INSULIN DRIP INFUSING PER DKA PROTOCOL.CALL LIGHT AND FALL PRECAUTIONS IN PLACE.WILL CONTINUE TO MONITOR FOR DURATION OF SHIFT.PT IS CONFIDENTIAL PATIENT AND ONLY WANTS J[place]TO TO BE TOLD INFORMATION.
[2019-02-05 22:02] LABS: CALCIUM 8.4 mg/dL (8.5-10.1); CREATININE 0.9 mg/dL (0.6-1.3); MAGNESIUM 2.1 mg/dL (1.8-2.4); PHOSPHORUS* 2.6 mg/dL (2.5-4.9)
[2019-02-06] VITALS (24 sets, daily range): BP systolic 87–111; BP diastolic 55–74
--- NOTE | 2019-02-06 03:14 | NUR ---
LAB IN TO ATTEMPT TO DRAW PT'S BLOOD, PT. STARTED SCREAMING, YELLING "GET OFF ME! DON'T FUCKING TOUCH ME!" REFUSING LAB DRAW. WILL CONTINUE TO MONITOR.
[2019-02-06 03:24] LABS: ABSOLUTE EOSINOPHILS 0.2 thou/uL (0.0-0.7); ABSOLUTE LYMPHOCYTES 3.3 thou/uL (0.8-5.3); ABSOLUTE MONOCYTES 0.8 thou/uL (0.0-1.2); ABSOLUTE NEUTROPHILS 7.6 thou/uL (1.6-8.1); BASOPHILS 0.3 %; EOSINOPHILS 1.4 %; HEMATOCRIT 40.4 % (37.0-47.0); LYMPHOCYTES 27.8 %; MCH 31.7 pg (26.0-34.0); MCHC 32.5 g/dL (28.0-37.0); MCV 97.5 fL (80.0-100.0); MONOCYTES 6.6 %; MPV 7.2 fl. (7.2-11.1); NUCLEATED RBCS 0 /100WBC; POLYS 63.9 %; RBC 4.14 mil/uL (4.20-5.00); WBC 11.9 thou/uL (4.0-11.0)
[2019-02-06 03:26] LABS: HEMOGLOBIN 13.1 gm/dL (12.0-15.0); PLATELET COUNT* 348 thou/uL (150-400)
[2019-02-06 03:36] LABS: POTASSIUM 4.1 mmol/L (3.5-5.1)
[2019-02-06 03:37] LABS: ALBUMIN 2.6 g/dL (3.4-5.0); CALCIUM 7.5 mg/dL (8.5-10.1); CREATININE 0.7 mg/dL (0.6-1.3); PHOSPHORUS* 1.9 mg/dL (2.5-4.9); TOTAL BILIRUBIN 0.2 mg/dL (<0.1-1.0)
--- NOTE | 2019-02-06 05:23 | NUR ---
PT. PROGRESSING TOWARDS GOALS. BLOOD GLUCOSE 121 AT THIS TIME. IVF INFUSING. PT. INCONTINENT OF URINE, LINENS CHANGED. PT. WITHDRAWN, DROWSY. DKA PROTOCOL. ROOM AIR. WILL CONTINUE TO MONITOR.
[2019-02-06 06:55] LABS: URINE BILIRUBIN NEGATIVE (Negative); URINE BLOOD NEGATIVE (Negative); URINE CLARITY CLEAR; URINE COLOR YELLOW; URINE GLUCOSE-RANDOM 2+ (Negative); URINE LEUKOCYTES NEGATIVE (Negative); URINE NITRITE NEGATIVE (Negative); URINE PROTEIN TRACE (Negative); URINE SPECIFIC GRAVITY >= 1.030 (1.005-1.030); URINE UROBILINOGEN 0.2 E.U./dl (0.2-1.0)
[2019-02-06 06:57] LABS: URINE KETONES 3+ (Negative)
--- NOTE | 2019-02-06 11:16 | EKG ---
[place] [address] ELECTROCARDIOGRAM REPORT Name: ROXI TRIPP Room: [address] ADM IN .R.#: [id number] Admission: 02/05/19 Attend Phys: Rod Whaley Discharge: Date of : 97 Report #: [id number] THIS REPORT FOR: //name// [facility] ED Test Date: 2019-02-05 Test Time: 13:43:15 Pat Name: ROXI ROSEOWEN Department: Room: [facility] Gender: F Lead Programmer Analyst: AMPARO : 1995 Requested By: Lexa Reece Order Number: [id number] MD: Venu Branham Measurements Intervals [place] Rate: 128 P: 68 [place]: 136 QRS: 121 QRSD: 96 T: -7 QT: 305 QTc: 445 Interpretive Statements Sinus tachycardia poor r wave progression Right axis deviation Low voltage, precordial leads Abnormal inferior Q waves Borderline T abnormalities, inferior leads Baseline wander in lead(s) V4 Compared to ECG 07/08/2017 23:27:54 Low QRS voltage now present rate increased Electronically Signed On 02-06-2019 11:16:23 CDT by Venu Branham [email or web address] <ELECTRONICALLY SIGNED> By: Venu Branham MD, FACC 02/06/19 1116 1343 1343 Venu Branham MD, [facility] /EPI
--- NOTE | 2019-02-06 14:58 | NUR ---
met with Katlin briefly in room at 9:58 AM. Unable to complete assessment conversation as she frequently closes eyes to rest and says she is really tired. She confirms she has no insurance and is receptive for resource contact to see if she will qualify for Medicaid or other communnity resources. She says she does the best she can to buy her insulin. Will complete assessment as she is more alert and able to talk.
[2019-02-07] VITALS (8 sets, daily range): BP systolic 88–107; BP diastolic 46–76
--- NOTE | 2019-02-07 05:12 | NUR ---
ASSESSMENT CHARTED. VSS. PATIENT SLEPT MOST OF THE NIGHT. VOIDED ONCE DURING SHIFT. BLOOD SUGAR DROPPED TO 63, GAVE PATIENT ORANGE JUICE AND PUDDING, NEXT GLUCOSE READING WAS 109. PATIENT WAS TRANSFERRED TO ROOM 110 AT 0504. REPORT CALLED AND GIVEN TO AL VELAZCO.
--- NOTE | 2019-02-07 05:38 | NUR ---
PT TRANSFERRED TO THE UNIT AT 0510 FROM ICU. PT A&O X4, VSS RA. IV FLUID INFUSING ORDERED. NO C/O PAIN. PT RESTING IN BED QUIETLY. WILL CONINUE TO MONITOR.
[2019-02-07] MEDS ORDERED: OMEPRAZOLE 20 M20 M1 PO (11:26)
--- NOTE | 2019-02-07 11:35 | NUR ---
DISCHARGE: DISCHARGE INSTRUCTIONS REVIEWED W/ PATIENT. PATIENT STATES VERBALLY OF UNDERSTANDING. PATIENT STATES NO PCP, PATIENT INSTRUCTED SHE NEEDS TO GET ONE AND FOLLOW UP. COPY OF DISCHARGE INSTRUCTIONS GIVEN TO PATIENT. IV X2 DISCONTINUED, CATH TIPS INTACT, COTTON BALL/TAPE APPLIED TO BOTH SITES. BELONGINGS GATHERED PER PATIENT, PATIENT DRESSES INDEP. SIGNIF OTHER PRESENT, PATIENT STATES DOES NOT NEED AN ESCORT OUT, SIGNIF OTHER PRESENT. AMB W/ STEADY GAIT OFF OF UNIT. DENIES OTHER NURSING NEEDS AT THIS TIME. ALERT AND ORIENTED, NO ACUTE DISTRESS NOTED.
== END 2019-02-07 11:35 | disposition home or self-care (01) | DRG 637 ==
LOC: M.ERS 13:22 → M.ICU 14:25 → M.TBA-ER 14:25 → M.ICU 14:25 → M.ORTHSURG 02-07 05:13
PROVIDERS: Emergency Medicine Emergency Medical Services; ADMIT Internal Medicine
DX: E10.10 Type 1 diabetes mellitus with ketoacidosis without coma (principal); G93.41 Metabolic encephalopathy; N17.9 Acute kidney failure, unspecified; R65.10 Systemic inflammatory response syndrome (SIRS) of non-infectious origin without acute organ dysfunction; E46 Unspecified protein-calorie malnutrition; E86.0 Dehydration; E10.65 Type 1 diabetes mellitus with hyperglycemia; Z68.22 Body mass index [BMI] 22.0-22.9, adult; Z91.041 Radiographic dye allergy status; Z91.040 Latex allergy status

== ENCOUNTER 2020-01-26 01:08 | Inpatient (IN) | payer BC ==
[~2020-01-26] VITALS: Ht 157.5 cm; Wt 51.3 kg
[2020-01-26] VITALS (19 sets, daily range): BP systolic 95–132; BP diastolic 52–82
[~2020-01-26 01:08] MED LIST changes: +OMEPRAZOLE 20 M20 M1 PO
[2020-01-26 01:54] LABS: ABSOLUTE BASOPHILS 0.5 thou/uL (0.0-0.2); ABSOLUTE LYMPHOCYTES 6.1 thou/uL (0.8-5.3); ABSOLUTE MONOCYTES 5.2 thou/uL (0.0-1.2); ABSOLUTE NEUTROPHILS 27.9 thou/uL (1.6-8.1); BASOPHILS 1.2 %; EOSINOPHILS 0.1 %; HEMATOCRIT 47.2 % (37.0-47.0); HEMOGLOBIN 15.5 gm/dL (12.0-15.0); LYMPHOCYTES 15.3 %; MCH 31.9 pg (26.0-34.0); MCHC 32.8 g/dL (28.0-37.0); MCV 97.2 fL (80.0-100.0); MONOCYTES 13.1 %; MPV 8.1 fl. (7.2-11.1); NUCLEATED RBCS 0 /100WBC; PLATELET COUNT* 698 thou/uL (150-400); POLYS 70.3 %; RBC 4.86 mil/uL (4.20-5.00); RDW-CV 14.1 % (10.5-14.5); WBC 39.7 thou/uL (4.0-11.0)
[2020-01-26 01:57] LABS: PROTIME 10.1 Seconds (9.20-11.50)
[2020-01-26 02:06] LABS: BE ND mmol/L (-2 to +3); PCO2 < 17.0 mmHg (35.0-45.0); PO2 146.7 mmHg (75.0-100.0)
[2020-01-26 02:10] LABS: BUN 36 mg/dL (7-18); CALCIUM 9.1 mg/dL (8.5-10.1); CHLORIDE 86 mmol/L (98-107); POTASSIUM 5.2 mmol/L (3.5-5.1); SODIUM 123 mmol/L (136-145)
[2020-01-26 02:11] LABS: ALBUMIN 4.1 g/dL (3.4-5.0); ALKALINE PHOSPHATASE 175 U/L (46-116); MAGNESIUM 2.5 mg/dL (1.8-2.4); SGOT 17 U/L (15-37); SGPT 24 U/L (30-65); TOTAL BILIRUBIN 0.4 mg/dL (<0.1-1.0); TOTAL PROTEIN 8.8 g/dL (6.4-8.2)
[2020-01-26 02:13] LABS: ANION GAP 32 mmol/L (7-16)
[2020-01-26 02:14] LABS: CO2 < 5 mmol/L (21-32); GLUCOSE 552 mg/dL (70-99)
[2020-01-26 02:35] LABS: pH ND (7.340-7.450)
[2020-01-26 04:42] LABS: URINE BILIRUBIN NEGATIVE (Negative); URINE BLOOD 1+ (Negative); URINE CLARITY CLEAR; URINE COLOR STRAW; URINE GLUCOSE-RANDOM 1+ (Negative); URINE KETONES 3+ (Negative); URINE LEUKOCYTES-REFLEX NEGATIVE (Negative); URINE NITRITE-REFLEX NEGATIVE (Negative); URINE PROTEIN 1+ (Negative); URINE SPECIFIC GRAVITY 1.025 (1.005-1.030); URINE UROBILINOGEN 0.2 E.U./dl (0.2-1.0)
[2020-01-26 04:44] LABS: ACETEST (KETONE CONFIRMATORY) Large (Negative)
[2020-01-26 05:12] LABS: AMORPHOUS URATES Few /LPF (None Seen); CASTS None Seen /LPF (None Seen); MUCUS 0-3 Light strn/LPF (None Seen); SQUAMOUS 4-10 Moderate /LPF (0-3)
[2020-01-26 05:13] LABS: BACTERIA-REFLEX 1-9 Few /HPF (None Seen); URINE RBC 3-10 Few /HPF (0-2); URINE WBC-REFLEX 0-5 Rare /HPF (0-5)
[2020-01-26 06:00] LABS: CALCIUM 7.6 mg/dL (8.5-10.1); CREATININE 0.7 mg/dL (0.6-1.3); MAGNESIUM 1.8 mg/dL (1.8-2.4); PHOSPHORUS* 2.1 mg/dL (2.5-4.9); POTASSIUM 4.4 mmol/L (3.5-5.1)
[2020-01-26 08:18] LABS: AMP/METHAMP Negative (Negative); BARBITURATES Negative (Negative); BENZODIAZEPINES Negative (Negative); COCAINE Negative (Negative); METHADONE Negative (Negative); OPIATES Negative (Negative); PCP Negative (Negative); THC Negative (Negative)
[2020-01-26 10:16] LABS: BE -11.4 mmol/L (-2 to +3); PCO2 VENOUS 35.9 mmHg (41.0-51.0); PO2 VENOUS 54.5 mmHg (35.0-45.0)
[2020-01-26 10:22] LABS: CALCIUM 6.7 mg/dL (8.5-10.1); CREATININE 0.7 mg/dL (0.6-1.3); MAGNESIUM 1.5 mg/dL (1.8-2.4); POTASSIUM 4.2 mmol/L (3.5-5.1)
[2020-01-26 14:38] LABS: ALBUMIN 2.4 g/dL (3.4-5.0); CREATININE 0.7 mg/dL (0.6-1.3); MAGNESIUM 1.6 mg/dL (1.8-2.4); PHOSPHORUS* 1.6 mg/dL (2.5-4.9); POTASSIUM 3.9 mmol/L (3.5-5.1)
--- NOTE | 2020-01-26 17:22 | EKG ---
[place] [address] ELECTROCARDIOGRAM REPORT Name: ROXI TRIPP Room: [address] IN .R.#: [id number] Admission: 01/26/20 Attend Phys: Kelby Almazan, Discharge: Date of : [birth year] Date of Service: 01/26/20 0128 Report #: [id number] THIS REPORT FOR: //name// [facility] ED Test Date: 2020-01-26 Test Time: 01:28:34 Pat Name: ROXI TRIPP Department: Room: [facility] Gender: F Privacy Attorney: : 1995 Requested By: Josefina Bob Order Number: [id number] MD: Tommy Barton Measurements Intervals [place] Rate: 106 P: 69 [place]: 151 QRS: 111 QRSD: 108 T: 7 QT: 333 QTc: 443 Interpretive Statements Sinus tachycardia INTRAVENTRICULAR CONDUCTION DELAY of the right type Probable left atrial enlargement Compared to ECG 02/05/2019 13:43:15 Poor R-wave progression no longer present Q waves no longer present T-wave abnormality no longer present Electronically Signed On 01-26-2020 17:22:36 CDT by Tommy Barton [email or web address] <ELECTRONICALLY SIGNED> By: Tommy Barton MD, [facility] 01/26/20 1722 7 7 Tommy Barton MD, [facility] /EPI
[2020-01-26 18:08] LABS: ALBUMIN 2.3 g/dL (3.4-5.0); CALCIUM 6.4 mg/dL (8.5-10.1); CREATININE 0.6 mg/dL (0.6-1.3); MAGNESIUM 1.6 mg/dL (1.8-2.4); PHOSPHORUS* 1.5 mg/dL (2.5-4.9); POTASSIUM 3.1 mmol/L (3.5-5.1)
--- NOTE | 2020-01-26 19:25 | NUR ---
PATIENTS GRANDMOTHERRACHEL, CONTACTED AND UPDATED ON PATIENT CONDITION PER PATIENT REQUEST
[2020-01-27] VITALS (9 sets, daily range): BP systolic 102–138; BP diastolic 60–79
[2020-01-27 04:52] LABS: ALBUMIN 2.2 g/dL (3.4-5.0); ALKALINE PHOSPHATASE 91 U/L (46-116); ANION GAP 9 mmol/L (7-16); BUN 7 mg/dL (7-18); CALCIUM 6.8 mg/dL (8.5-10.1); CHLORIDE 104 mmol/L (98-107); CO2 22 mmol/L (21-32); CREATININE 0.5 mg/dL (0.6-1.3); GLUCOSE 146 mg/dL (70-99); MAGNESIUM 1.8 mg/dL (1.8-2.4); PHOSPHORUS* 1.2 mg/dL (2.5-4.9); POTASSIUM 3.1 mmol/L (3.5-5.1); SGOT 23 U/L (15-37); SGPT 16 U/L (30-65); SODIUM 135 mmol/L (136-145); TOTAL BILIRUBIN 0.3 mg/dL (<0.1-1.0); TOTAL PROTEIN 5.1 g/dL (6.4-8.2)
[2020-01-27 05:07] LABS: GLYCOHEMOGLOBIN (HGB A1C) 13.6 % (4.8-5.6)
--- NOTE | 2020-01-27 05:30 | NUR ---
ASSUMED PATIENT CARE AT 1900. PATIENT ALERT AND ORIENTED TIMES FOUR, LETHARGIC. NO COMPLAINTS OF PAIN OR DISCOMFORT NOTED. BLOOD SUGARS REMAIN STABLE. RN ASSESSMENTS COMPLETED CHARTED
[2020-01-27] MEDS ORDERED: LANTUS SUBQ (08:08)
[2020-01-27] MEDS ORDERED: HUMULIN R100 UNIT/1 SUBQ (08:08)
--- NOTE | 2020-01-27 09:00 | NUR ---
ASSUMED CARE AT 0700. PATIENT UPSET AT BREAKFAST DEMANDING TO LEAVE NOW. AFTER BREAKFAST MORE COOPERATIVE BUT FLAT. WHEN ASKED IF SHE HAS DM SUPPLIES. STATES SHE DOES.
--- NOTE | 2020-01-27 09:40 | NUR ---
ALLI [id number]
[2020-01-27 09:47] LABS: ABSOLUTE BASOPHILS 0.1 thou/uL (0.0-0.2); ABSOLUTE EOSINOPHILS 0.1 thou/uL (0.0-0.7); ABSOLUTE MONOCYTES 1.4 thou/uL (0.0-1.2); ABSOLUTE NEUTROPHILS 9.5 thou/uL (1.6-8.1); BASOPHILS 0.9 %; EOSINOPHILS 0.6 %; HEMATOCRIT 33.1 % (37.0-47.0); HEMOGLOBIN 11.8 gm/dL (12.0-15.0); LYMPHOCYTES 21.5 %; MCH 31.8 pg (26.0-34.0); MCHC 35.6 g/dL (28.0-37.0); MCV 89.2 fL (80.0-100.0); MONOCYTES 9.7 %; MPV 6.9 fl. (7.2-11.1); NUCLEATED RBCS 0 /100WBC; PLATELET COUNT* 339 thou/uL (150-400); POLYS 67.3 %; RBC 3.71 mil/uL (4.20-5.00); RDW-CV 13.4 % (10.5-14.5); WBC 14.1 thou/uL (4.0-11.0)
--- NOTE | 2020-01-27 12:42 | NUR ---
UPDATED DR AMAYA ON BS AND ELECTROLYTES. PLAN FOR DISCHARGE IF TOLERATES LUNCH.
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
--- NOTE | 2020-01-27 17:40 | NUR ---
DISCHARGED VIA WHEELCHAIR HOME WITH GRANDMA.
== END 2020-01-27 17:40 | disposition home or self-care (01) | DRG 639 ==
LOC: M.ERS 01:08 → M.TBA-ER 02:29 → M.ICU 11:00
PROVIDERS: Internal Medicine; Personal Emergency Response Attendant; ADMIT Internal Medicine; ATTEND Internal Medicine
PROC: 02HV33Z Insertion of Infusion Device into Superior Vena Cava, Percutaneous Approach (ICD-10-PCS; principal; 2020-01-26)
DX: E10.11 Type 1 diabetes mellitus with ketoacidosis with coma (principal); E86.9 Volume depletion, unspecified; Z20.828 Contact with and (suspected) exposure to other viral communicable diseases; Z91.14 Patient's other noncompliance with medication regimen; Z79.4 Long term (current) use of insulin; Z79.899 Other long term (current) drug therapy; Z91.041 Radiographic dye allergy status; Z91.040 Latex allergy status

== ENCOUNTER 2020-09-07 07:25 | Inpatient (IN) | payer BC ==
[2020-09-07] VITALS (49 sets, daily range): BP systolic 88–122; BP diastolic 49–75
[~2020-09-07] VITALS: Ht 167.6 cm; Wt 46.7 kg
[~2020-09-07 07:25] MED LIST changes: +HUMULIN R100 UNIT/1 SUBQ; +LANTUS SUBQ
[2020-09-07 07:59] LABS: PCO2 VENOUS 21.1 mmHg (41.0-51.0); PO2 VENOUS 95.5 mmHg (35.0-45.0)
[2020-09-07 08:06] LABS: URINE BILIRUBIN NEGATIVE (Negative); URINE BLOOD 1+ (Negative); URINE CLARITY CLEAR; URINE COLOR YELLOW; URINE GLUCOSE-RANDOM 3+ (Negative); URINE KETONES 3+ (Negative); URINE LEUKOCYTES-REFLEX NEGATIVE (Negative); URINE NITRITE-REFLEX NEGATIVE (Negative); URINE PROTEIN TRACE (Negative); URINE SPECIFIC GRAVITY >= 1.030 (1.005-1.030); URINE UROBILINOGEN 0.2 E.U./dl (0.2-1.0)
[2020-09-07 08:13] LABS: SALICYLATE 6.6 mg/dL (2.8-20.0)
[2020-09-07 08:14] LABS: AMP/METHAMP Negative (Negative); BARBITURATES Negative (Negative); BENZODIAZEPINES Negative (Negative); COCAINE Negative (Negative); METHADONE Negative (Negative); OPIATES Negative (Negative); PCP Negative (Negative); THC Negative (Negative)
[2020-09-07 08:16] LABS: ACETAMINOPHEN < 2 ug/mL (10-30); ALCOHOL < 10 mg/dL (<10)
[2020-09-07 08:26] LABS: CALCIUM 10.4 mg/dL (8.5-10.1); CREATININE 1.2 mg/dL (0.6-1.3); POTASSIUM 5.5 mmol/L (3.5-5.1)
[2020-09-07 08:28] LABS: SQUAMOUS 4-10 Moderate /LPF (0-3); URINE WBC-REFLEX 0-5 Rare /HPF (0-5)
[2020-09-07 08:29] LABS: COARSE GRANULAR CASTS 0-3 Few /LPF (None Seen); CRYSTALS None Seen /LPF (None Seen); MUCUS 0-3 Light strn/LPF (None Seen); URINE RBC 3-10 Few /HPF (0-2)
[2020-09-07 08:36] LABS: ALBUMIN 4.1 g/dL (3.4-5.0); TOTAL BILIRUBIN 0.5 mg/dL (<0.1-1.0); TOTAL PROTEIN 8.2 g/dL (6.4-8.2)
[2020-09-07 08:53] LABS: HEMATOCRIT 43.9 % (37.0-47.0); HEMOGLOBIN 14.4 gm/dL (12.0-15.0); MCH 30.8 pg (26.0-34.0); MCHC 32.9 g/dL (28.0-37.0); MCV 93.6 fL (80.0-100.0); MPV 7.7 fl. (7.2-11.1); NUCLEATED RBCS 0 /100WBC; PLATELET COUNT* 495 thou/uL (150-400); RBC 4.69 mil/uL (4.20-5.00); RDW-CV 12.9 % (10.5-14.5); WBC 37.1 thou/uL (4.0-11.0)
[2020-09-07 09:16] LABS: ABSOLUTE EOSINOPHILS 0.4 thou/uL (0.0-0.7); ABSOLUTE LYMPHOCYTES 5.6 thou/uL (0.8-5.3); ABSOLUTE NEUTROPHILS 28.2 thou/uL (1.6-8.1); ANISOCYTOSIS 1+; PLATELET ESTIMATE INCREASED; POIKILOCYTOSIS 1+
--- NOTE | 2020-09-07 10:09 | EKG ---
[place] [address] ELECTROCARDIOGRAM REPORT Name: ROXI TRIPP Room: [address] IN .R.#: [id number] Admission: 09/07/20 Attend Phys: Joaquín Pizarro, Discharge: Date of : [birth year] Date of Service: 09/07/20 0840 Report #: [id number] THIS REPORT FOR: //name// [facility] ED Test Date: 2020-09-07 Test Time: 08:40:21 Pat Name: ROXI TRIPP Department: Room: [facility] Gender: F Meat And Seafood Clerk: NEIL : 1995 Requested By: Lexa Reece Order Number: [id number] MD: Venu Branham Measurements Intervals [place] Rate: 95 P: 51 NE: 147 QRS: 111 QRSD: 99 T: 34 QT: 383 QTc: 482 Interpretive Statements Sinus rhythm Right axis deviation Low voltage, precordial leads artifact noted Borderline prolonged QT interval Compared to ECG 01/26/2020 01:28:34 Sinus tachycardia no longer present Intraventricular conduction delay no longer present Electronically Signed On 09-07-2020 10:08:49 CDT by Vneu Branham [email or web address] <ELECTRONICALLY SIGNED> By: Venu Branham MD, FACC 09/07/20 1008 9 9 Venu Branham MD, [facility] /EPI
[2020-09-07 11:15] LABS: ABSOLUTE BASOPHILS 0.5 thou/uL (0.0-0.2); ABSOLUTE MONOCYTES 3.6 thou/uL (0.0-1.2); ABSOLUTE NEUTROPHILS 24.4 thou/uL (1.6-8.1); BASOPHILS 1.3 %; HEMATOCRIT 43.3 % (37.0-47.0); HEMOGLOBIN 14.3 gm/dL (12.0-15.0); LYMPHOCYTES 17.5 %; MCH 29.8 pg (26.0-34.0); MCHC 33.1 g/dL (28.0-37.0); MCV 90.2 fL (80.0-100.0); MONOCYTES 10.4 %; MPV 7.1 fl. (7.2-11.1); NUCLEATED RBCS 0 /100WBC; PLATELET COUNT* 458 thou/uL (150-400); POLYS 70.8 %; WBC 34.5 thou/uL (4.0-11.0)
[2020-09-07 11:55] LABS: ALBUMIN 3.3 g/dL (3.4-5.0); CREATININE 0.9 mg/dL (0.6-1.3); MAGNESIUM 2.2 mg/dL (1.8-2.4); PHOSPHORUS* 3.7 mg/dL (2.5-4.9)
[2020-09-07 11:56] LABS: POTASSIUM 4.1 mmol/L (3.5-5.1)
[2020-09-07 15:54] LABS: HEMATOCRIT 36.6 % (37.0-47.0); HEMOGLOBIN 12.8 gm/dL (12.0-15.0); MCH 31.2 pg (26.0-34.0); MCHC 35.1 g/dL (28.0-37.0); MCV 88.9 fL (80.0-100.0); NUCLEATED RBCS 0 /100WBC; PLATELET COUNT* 371 thou/uL (150-400); RBC 4.12 mil/uL (4.20-5.00); RDW-CV 12.9 % (10.5-14.5); WBC 21.4 thou/uL (4.0-11.0)
[2020-09-07 16:05] LABS: ALBUMIN 2.7 g/dL (3.4-5.0); CALCIUM 7.5 mg/dL (8.5-10.1); CREATININE 0.7 mg/dL (0.6-1.3); MAGNESIUM 1.5 mg/dL (1.8-2.4); PHOSPHORUS* 1.3 mg/dL (2.5-4.9)
[2020-09-07 16:22] LABS: ABSOLUTE LYMPHOCYTES 4.5 thou/uL (0.8-5.3); ABSOLUTE MONOCYTES 1.9 thou/uL (0.0-1.2)
[2020-09-07 16:23] LABS: PLATELET ESTIMATE ADEQUATE
[2020-09-07 20:15] LABS: HEMATOCRIT 35.4 % (37.0-47.0); HEMOGLOBIN 12.4 gm/dL (12.0-15.0); MCH 30.7 pg (26.0-34.0); MCHC 35.2 g/dL (28.0-37.0); MCV 87.3 fL (80.0-100.0); MPV 6.8 fl. (7.2-11.1); NUCLEATED RBCS 0 /100WBC; PLATELET COUNT* 353 thou/uL (150-400); RBC 4.05 mil/uL (4.20-5.00); RDW-CV 12.7 % (10.5-14.5); WBC 18.7 thou/uL (4.0-11.0)
[2020-09-07 20:17] LABS: ABSOLUTE NEUTROPHILS 14.3 thou/uL (1.6-8.1); LYMPHOCYTES 10.5 %; POLYS 76.6 %
[2020-09-07 20:18] LABS: ABSOLUTE BASOPHILS 0.2 thou/uL (0.0-0.2); ABSOLUTE MONOCYTES 2.2 thou/uL (0.0-1.2); BASOPHILS 1.2 %; EOSINOPHILS 0.1 %; MONOCYTES 11.6 %
[2020-09-07 20:26] LABS: ALBUMIN 2.6 g/dL (3.4-5.0); CALCIUM 8.5 mg/dL (8.5-10.1); CREATININE 0.8 mg/dL (0.6-1.3); MAGNESIUM 2.2 mg/dL (1.8-2.4); POTASSIUM 3.8 mmol/L (3.5-5.1)
[2020-09-08] VITALS (31 sets, daily range): BP systolic 85–121; BP diastolic 44–79
[2020-09-08 01:40] LABS: ALBUMIN 2.5 g/dL (3.4-5.0); CALCIUM 7.6 mg/dL (8.5-10.1); CREATININE 0.8 mg/dL (0.6-1.3); PHOSPHORUS* 1.1 mg/dL (2.5-4.9); POTASSIUM 3.4 mmol/L (3.5-5.1)
[2020-09-08 02:10] LABS: BE -8.6 mmol/L (-2 to +3); PCO2 28.3 mmHg (35.0-45.0); PO2 89.6 mmHg (75.0-100.0); pH 7.357 (7.340-7.450)
[2020-09-08 05:40] LABS: ALBUMIN 2.3 g/dL (3.4-5.0); CALCIUM 7.3 mg/dL (8.5-10.1); CREATININE 0.6 mg/dL (0.6-1.3); MAGNESIUM 1.9 mg/dL (1.8-2.4); POTASSIUM 3.6 mmol/L (3.5-5.1)
--- NOTE | 2020-09-08 10:52 | EKG ---
[place] [address] ELECTROCARDIOGRAM REPORT Name: ROXI TRIPP Room: [address] ADM IN .R.#: [id number] Admission: 09/07/20 Attend Phys: Joaquín Pizarro, Discharge: Date of : [birth year] Date of Service: 09/08/20 0130 Report #: [id number] THIS REPORT FOR: //name// [facility] Test Date: 2020-09-08 Test Time: 01:30:52 Pat Name: ROXI ROSEOWEN Department: Room: [address] Gender: F Chicken Raiser: JESENIA : 1995 Requested By: Priscilla Newman Order Number: [id number] MD: Venu Branham Measurements Intervals [place] Rate: 193 P: 0 [place]: QRS: 117 QRSD: 78 T: -73 QT: 279 QTc: 500 Interpretive Statements Supraventricular tachycardia Left posterior fascicular block Low voltage, extremity and precordial leads RSR' in V1 or V2, probably normal variant Repolarization abnormality, prob rate related Prolonged QT interval Baseline wander in lead(s) V2 Compared to ECG 09/07/2020 08:40:21 Sinus rhythm no longer present Electronically Signed On 09-08-2020 10:52:20 CDT by Venu Branham [email or web address] <ELECTRONICALLY SIGNED> By: Venu Branham MD, [facility] 09/08/20 1052 9 9 Venu Branham MD, [facility] /EPI
--- NOTE | 2020-09-08 10:53 | EKG ---
[place] [address] ELECTROCARDIOGRAM REPORT Name: ROXI TRIPP Room: [address] ADM IN M.R.#: [id number] Admission: 09/07/20 Attend Phys: Joaquín Pizarro, Discharge: Date of : [birth year] Date of Service: 09/08/20 0142 Report #: [id number] THIS REPORT FOR: //name// [facility] Test Date: 2020-09-08 Test Time: 01:42:46 Pat Name: ROXI TRIPP Department: Room: [address] Gender: F Patient Registration Rep: JESENIA : 1995 Requested By: Joaquín Pizarro Order Number: [id number] MD: Venu Branham Measurements Intervals [place] Rate: 117 P: 44 [place]: 133 QRS: 108 QRSD: 97 T: 55 QT: 460 QTc: 642 Interpretive Statements Sinus tachycardia Borderline right axis deviation Low voltage, precordial leads Prolonged QT interval Compared to ECG 09/08/2020 01:30:52 rate has slowed Electronically Signed On 09-08-2020 10:52:52 CDT by Venu Branham [email or web address] <ELECTRONICALLY SIGNED> By: Venu Branham MD, [facility] 09/08/20 1052 1 1 Venu Branham MD, [facility] /EPI
[2020-09-08 11:44] LABS: HEMATOCRIT 32.3 % (37.0-47.0); HEMOGLOBIN 11.4 gm/dL (12.0-15.0); MCH 30.8 pg (26.0-34.0); MCHC 35.3 g/dL (28.0-37.0); MCV 87.3 fL (80.0-100.0); RBC 3.7 mil/uL (4.20-5.00); RDW-CV 13.2 % (10.5-14.5); WBC 15.5 thou/uL (4.0-11.0)
[2020-09-08 11:59] LABS: CALCIUM 7.5 mg/dL (8.5-10.1); CREATININE 0.6 mg/dL (0.6-1.3); PHOSPHORUS* 0.8 mg/dL (2.5-4.9); POTASSIUM 3.4 mmol/L (3.5-5.1)
[2020-09-09 04:27] LABS: HEMATOCRIT 31.1 % (37.0-47.0); HEMOGLOBIN 10.9 gm/dL (12.0-15.0); MCH 30.9 pg (26.0-34.0); MCHC 34.9 g/dL (28.0-37.0); MCV 88.5 fL (80.0-100.0); MPV 7.4 fl. (7.2-11.1); RBC 3.52 mil/uL (4.20-5.00); RDW-CV 13.1 % (10.5-14.5); WBC 11.5 thou/uL (4.0-11.0)
[2020-09-09 04:40] LABS: CALCIUM 7.8 mg/dL (8.5-10.1); CREATININE 0.4 mg/dL (0.6-1.3)
[2020-09-09 04:47] VITALS: BP 115/73
[2020-09-09 05:00] LABS: POTASSIUM 2.5 mmol/L (3.5-5.1)
[2020-09-09 08:00] VITALS: BP 117/76
[2020-09-09 12:00] VITALS: BP 113/66
[2020-09-09 19:27] VITALS: BP 113/66
== END 2020-09-09 23:48 | disposition home or self-care (01) | DRG 639 ==
LOC: M.ERS 07:25 → M.ICU 08:32 → M.TBA-ER 08:32 → M.ICU 08:32 → M.2W 09-08 18:10
PROVIDERS: Emergency Medicine; Emergency Medicine Emergency Medical Services; Family Medicine; ADMIT Internal Medicine; ATTEND Internal Medicine
PROC: 02H633Z Insertion of Infusion Device into Right Atrium, Percutaneous Approach (ICD-10-PCS; principal; 2020-09-07)
DX: E10.10 Type 1 diabetes mellitus with ketoacidosis without coma (principal); E86.9 Volume depletion, unspecified; E87.6 Hypokalemia; Z20.822 Contact with and (suspected) exposure to COVID-19; Z91.19 Patient's noncompliance with other medical treatment and regimen; Z91.041 Radiographic dye allergy status; Z91.040 Latex allergy status

== ENCOUNTER 2020-10-17 22:18 | Inpatient (IN) | payer OTHER ==
[~2020-10-17] VITALS: Ht 157.5 cm; Wt 47.6 kg
[2020-10-17 22:29] VITALS: BP 119/82
[2020-10-17 23:12] LABS: BE -29.7 mmol/L (-2 to +3); PCO2 VENOUS 19.4 mmHg (41.0-51.0); PO2 VENOUS 79.2 mmHg (35.0-45.0)
[2020-10-17 23:23] LABS: HEMOGLOBIN 15.1 gm/dL (12.0-15.0); MCHC 31.6 g/dL (28.0-37.0); RDW-CV 14.9 % (10.5-14.5)
[2020-10-17 23:27] LABS: PROTIME 10.6 Seconds (9.20-11.50)
[2020-10-17 23:29] LABS: HEMATOCRIT 47.9 % (37.0-47.0); MCH 31.4 pg (26.0-34.0); MCV 99.3 fL (80.0-100.0); MPV 8.1 fl. (7.2-11.1); NUCLEATED RBCS 0 /100WBC; PLATELET COUNT* 635 thou/uL (150-400); RBC 4.83 mil/uL (4.20-5.00); WBC 18.4 thou/uL (4.0-11.0)
[2020-10-17 23:36] LABS: ALKALINE PHOSPHATASE 178 U/L (46-116); ANION GAP 29 mmol/L (7-16); BUN 26 mg/dL (7-18); CALCIUM 9.6 mg/dL (8.5-10.1); CHLORIDE 90 mmol/L (98-107); MAGNESIUM 2.2 mg/dL (1.8-2.4); NT-PRO BRAIN NAT PEPTIDE 24 pg/mL (<300); POTASSIUM 5.5 mmol/L (3.5-5.1); SGOT 11 U/L (15-37); SGPT 17 U/L (30-65); SODIUM 124 mmol/L (136-145); TOTAL BILIRUBIN 0.4 mg/dL (<0.1-1.0); TOTAL PROTEIN 9.3 g/dL (6.4-8.2)
[2020-10-17 23:37] LABS: CO2 < 5 mmol/L (21-32); GLUCOSE 598 mg/dL (70-99)
[2020-10-18] VITALS (16 sets, daily range): BP systolic 90–118; BP diastolic 49–76
[2020-10-18 00:38] LABS: ABSOLUTE BASOPHILS 0.2 thou/uL (0.0-0.2); ABSOLUTE LYMPHOCYTES 5.2 thou/uL (0.8-5.3); ABSOLUTE MONOCYTES 1.1 thou/uL (0.0-1.2); PLATELET ESTIMATE INCREASED
[2020-10-18 03:27] LABS: CALCIUM 8.4 mg/dL (8.5-10.1); CREATININE 0.7 mg/dL (0.6-1.3); MAGNESIUM 1.6 mg/dL (1.8-2.4); PHOSPHORUS* 2.2 mg/dL (2.5-4.9)
[2020-10-18 03:32] LABS: POTASSIUM 3.8 mmol/L (3.5-5.1)
[2020-10-18 07:28] LABS: CREATININE 0.6 mg/dL (0.6-1.3); MAGNESIUM 1.6 mg/dL (1.8-2.4); PHOSPHORUS* 2.2 mg/dL (2.5-4.9); POTASSIUM 4.4 mmol/L (3.5-5.1)
[2020-10-18 07:53] LABS: URINE BILIRUBIN NEGATIVE (Negative); URINE BLOOD NEGATIVE (Negative); URINE CLARITY CLEAR; URINE COLOR YELLOW; URINE GLUCOSE-RANDOM 2+ (Negative); URINE LEUKOCYTES-REFLEX NEGATIVE (Negative); URINE NITRITE-REFLEX NEGATIVE (Negative); URINE PROTEIN TRACE (Negative); URINE SPECIFIC GRAVITY 1.025 (1.005-1.030); URINE UROBILINOGEN 0.2 E.U./dl (0.2-1.0)
[2020-10-18 07:56] LABS: URINE KETONES 3+ (Negative)
[2020-10-18 07:57] LABS: ACETEST (KETONE CONFIRMATORY) Large (Negative)
[2020-10-18 08:00] LABS: AMP/METHAMP Negative (Negative); BARBITURATES Negative (Negative); BENZODIAZEPINES Negative (Negative); COCAINE Negative (Negative); METHADONE Negative (Negative); OPIATES Negative (Negative); PCP Negative (Negative); THC Negative (Negative)
--- NOTE | 2020-10-18 08:23 | NUR ---
0700 ASSUMED CARE OF PATIENT. PLEASE SEE DOCUMENTED ASSESSMENT. SEE WOUND PHOTOGRAPHY. UP TO BSC. PATIENT IS ALERT,STEADY GAIT.
[2020-10-18 11:27] LABS: ALBUMIN 2.6 g/dL (3.4-5.0); CALCIUM 8.1 mg/dL (8.5-10.1); CREATININE 0.6 mg/dL (0.6-1.3); MAGNESIUM 2.2 mg/dL (1.8-2.4); PHOSPHORUS* 1.9 mg/dL (2.5-4.9); POTASSIUM 3.9 mmol/L (3.5-5.1)
--- NOTE | 2020-10-18 12:51 | EKG ---
[place] [address] ELECTROCARDIOGRAM REPORT Name: ROXI TRIPP Room: [address] [place] .R.#: [id number] Admission: 10/18/20 Attend Phys: Kelby Almazan, Discharge: Date of : [birth year] Date of Service: 10/17/20 2248 Report #: [id number] THIS REPORT FOR: //name// [facility] ED Test Date: 2020-10-17 Test Time: 22:48:41 Pat Name: ROXI TRIPP Department: Room: [facility] Gender: F Cloth Seconds Sorter: PAYAL : 1995 Requested By: Priscilla Newman Order Number: [id number] MD: Tommy Barton Measurements Intervals [place] Rate: 112 P: 70 FL: 158 QRS: 116 QRSD: 127 T: 11 QT: 332 QTc: 453 Interpretive Statements Sinus tachycardia Nonspecific intraventricular conduction delay Probable anteroseptal infarct, old Compared to ECG 09/08/2020 01:42:46 Intraventricular conduction delay now present Myocardial infarct finding now suggested Prolonged QT interval no longer present Electronically Signed On 10-18-2020 12:50:25 CDT by Tommy Barton [email or web address] <ELECTRONICALLY SIGNED> By: Tommy Barton MD, [facility] 10/18/20 1250 47 Tommy Barton MD, [facility] /EPI
--- NOTE | 2020-10-18 14:11 | NUR ---
DKA PROTOCL STOPPED PER ORDER DR MORALES. PT TOOK CARB CONTROLLED LUNCH.
--- NOTE | 2020-10-18 14:46 | NUR ---
PATIENT IS NOW MED/SURG STATUS.
--- NOTE | 2020-10-18 15:34 | NUR ---
REPORT TO BAILEY MELENDEZ. PATIENT IS MOVING TO ROOM 110
--- NOTE | 2020-10-18 16:22 | NUR ---
Case and plan of care reviewed with . Pt very rude and angry acting with staff and Remains on Ins gtt. requested assistance with finding outpatient bridge program to assist pt with non compliance issues. CM will continue to follow for DC planning needs.
--- NOTE | 2020-10-18 16:58 | NUR ---
PT A&OX4 VSS. PT UP AD MELINA. PT ARRIVED ON UNIT APPROX 1600 FROM ICU. REPORT FROM OZIEL MELENDEZ. PT ACCUCHECKS, INSULIN R REQUESTED FROM PHARMACY. PHOSPHORUS REPLACED THIS SHIFT STARTING ON ICU UNIT. IVs TO R WRIST AND LFA PATENT, DRESSINGS C/D/I. WOUND TO R ANKLE PRESENT AT TIME THIS NURSE ASSUMED CARE. DRESSING C/D/I. PT UNABLE TO RECALL LAST BM. PT RESTS IN ROOM WITH CALL LIGHT IN REACH, WILL CONTINUE TO MONITOR.
[2020-10-19 00:55] VITALS: BP 101/63
[2020-10-19 04:02] LABS: ALBUMIN 2.6 g/dL (3.4-5.0); ALKALINE PHOSPHATASE 110 U/L (46-116); ANION GAP 8 mmol/L (7-16); BUN 10 mg/dL (7-18); CALCIUM 8.2 mg/dL (8.5-10.1); CHLORIDE 106 mmol/L (98-107); CO2 26 mmol/L (21-32); CREATININE 0.4 mg/dL (0.6-1.3); GLUCOSE 134 mg/dL (70-99); PHOSPHORUS* 2.2 mg/dL (2.5-4.9); POTASSIUM 3.5 mmol/L (3.5-5.1); SGOT 11 U/L (15-37); SGPT 14 U/L (30-65); SODIUM 140 mmol/L (136-145); TOTAL BILIRUBIN 0.2 mg/dL (<0.1-1.0); TOTAL PROTEIN 6.4 g/dL (6.4-8.2)
[2020-10-19 04:40] LABS: ABSOLUTE EOSINOPHILS 0.1 thou/uL (0.0-0.7); ABSOLUTE LYMPHOCYTES 3.8 thou/uL (0.8-5.3); ABSOLUTE MONOCYTES 0.5 thou/uL (0.0-1.2); ABSOLUTE NEUTROPHILS 5.4 thou/uL (1.6-8.1); BASOPHILS 0.4 %; EOSINOPHILS 1.4 %; HEMATOCRIT 37.3 % (37.0-47.0); MCH 30.7 pg (26.0-34.0); MONOCYTES 5.2 %; MPV 7.5 fl. (7.2-11.1); NUCLEATED RBCS 0 /100WBC; RBC 4.12 mil/uL (4.20-5.00); RDW-CV 13.7 % (10.5-14.5); WBC 9.9 thou/uL (4.0-11.0)
[2020-10-19 04:47] LABS: HEMOGLOBIN 12.7 gm/dL (12.0-15.0); MCV 90.4 fL (80.0-100.0); PLATELET COUNT* 459 thou/uL (150-400)
--- NOTE | 2020-10-19 05:07 | NUR ---
PT ALERT AND ORIENTED, STANDBY ASSIST, JUST TOLD ME SHE WAS TIRED. CHECKED BLOOD SUGARS AND BLOOD PRESSURE WAS LOW, WHILE ATTEMPTING TO ASSESS HER SHE JUST SAID SHE WAS TIRED AND WANTED TO SLEEP. SHE WAS NOT UP FOR ANSWERING QUESTIONS.
[2020-10-19 07:50] VITALS: BP 103/64
--- NOTE | 2020-10-19 08:40 | NUR ---
PT SITTING IN BED WITH BREAKFAST. PT DEMANDS SHE WANTS TO LEAVE AT THIS TIME. PT REFUSING INSULIN AND IV ABX. STATES SHE WANTS TO SIGN AMA PAPERS AT THIS TIME. DR. MORALES NOTIFIED. STATES SHE IS ENTERING IN DISCHARGE ORDERS AT THIS TIME. PT AGITATED AND DOES NOT WANT TO STAY AT THE HOSPITAL. PT ADMINISTRATION IN TO TALK TO PT. PT EDUCATED ON IMPORTANCE OF FOLLOW UP AND DIABETES MANAGEMENT.
[2020-10-19 09:11] VITALS: BP 101/63
--- NOTE | 2020-10-19 10:54 | NUR ---
PT ALERT AND ORIENTED X 4. PT EDUCATED ON IMPORTANCE OF MANAGING BLOOD SUGARS AND FOLLOW UP. PT TO FOLLOW UP WITH GRAIN SHOVELER. INFORMED IMPORTANCE OF FOOT AND WOUND CARE. PT STATES UNDERSTANDING. PT REFUSED FOR ANY WOUND PICTURES TO BE TAKEN. ALSO, REFUSED ANY HOME MEDS. DID NOT ALLOW INSULIN TO BE GIVEN THIS AM FOR BLOOD SUGAR OF 201. PT ATE 50% OF BREAKFAST. ENCOURAGED PO INTAKE. IVS BOTH REMOVED WITH CATHETER INTACT. COTTON BALL AND TAPE APPLIED. PT SPOKE TO VALENTINE Parsons ABOUT HOSPITAL STAY. PT DID NOT SIGN D/C PAPERS.
[2020-10-19 10:58] VITALS: BP 101/63
== END 2020-10-19 10:59 | disposition home or self-care (01) | DRG 637 ==
LOC: M.ERS 22:18 → M.TBA-ER 10-18 00:10 → M.ICU 10-18 01:49 → M.ORTHSURG 10-18 15:52
PROVIDERS: Emergency Medicine; Family Medicine; ADMIT Internal Medicine; ATTEND Internal Medicine
PROC: 0Y9M0ZZ Drainage of Right Foot, Open Approach (ICD-10-PCS; principal; 2020-10-18)
DX: E10.10 Type 1 diabetes mellitus with ketoacidosis without coma (principal); G93.41 Metabolic encephalopathy; L02.611 Cutaneous abscess of right foot; E10.621 Type 1 diabetes mellitus with foot ulcer; E86.9 Volume depletion, unspecified; Z20.822 Contact with and (suspected) exposure to COVID-19; Z91.040 Latex allergy status; Z91.09 Other allergy status, other than to drugs and biological substances; Z91.14 Patient's other noncompliance with medication regimen